=== PATIENT | female | born 1950 | race Caucasian/White ===

== ENCOUNTER 2017-01-03 12:48 | Emergency (ER) | payer MEDICAID, MEDICARE ==
[2017-01-03 13:57] LABS: #Basophils 0.1 thou/uL (0.0-0.2); #Eosinphils 0.2 thou/uL (0.0-0.7); #Lymphocytes 2.7 thou/uL (1.20-3.40); #Monocytes 0.6 thou/uL (0.11-0.59); #Neutrophils 3.2 thou/uL (1.40-6.50); %Basophils 0.9 % (0.0-1.0); %Eosinophils 2.8 % (0.0-10.0); %Lymphocytes 40.2 % (21.0-51.0); %Monocytes 8.6 % (0.0-10.0); Hematocrit 34.2 % (36.0-47.0); Mean Platelet Volume 7.3 fL (7.4-10.4); White Blood Cell (WBC) Count 6.7 thou/uL (4.8-10.8)
[2017-01-03 14:19] LABS: ALT (SGPT) 19 U/L (8-55); AST (SGOT) 18 U/L (5-34); Alkaline Phosphatase 98 U/L (40-150); Anion Gap 13 mmol/L (10-20); BUN (Urea Nitrogen) 20 mg/dL (9.8-20.1); Bilirubin, Total 0.2 mg/dL (0.2-1.2); Calc. Creatinine Clearance 0 mL/min (70-130); Calcium 8.5 mg/dL (7.8-10.44); Carbon Dioxide 26 mmol/L (23-31); Chloride 104 mmol/L (98-107); Estimated GFR-MDRD 66; Globulin 3.3 g/dL (2.4-3.5); Protein, Total 6.9 g/dL (6.0-8.3)
[2017-01-03 14:20] LABS: Acetaminophen Less than 6.0 mcg/mL (10.0-30.0); Salicylate Less than 8.0 mg/dL (15.0-30.0)
[2017-01-03 15:38] LABS: Bilirubin Negative (Negative); Blood, Urine Negative (Negative); Glucose, Urine (Dipstick) Negative (Negative); Ketone, Urine Negative (Negative); Nitrite Negative (Negative); Protein, Urine (Dipstick) Negative (Neg-Trace); Urobilinogen 0.2 mg/dL (0.2-1.0)
[2017-01-03 15:46] LABS: Amphetamine Not Detected (NotDetected); Methamphetamine Not Detected (NotDetected)
[2017-01-03 15:47] LABS: Methadone Not Detected (NotDetected)
[2017-01-03] MEDS ORDERED: Mag-Al 1200 mg/1200 mg/30 ML UDCUP ONE (23:20)
== END 2017-01-04 09:09 ==
LOC: ERS 12:48
DX: R45.851 Suicidal ideations (principal); E03.9 Hypothyroidism, unspecified; I10 Essential (primary) hypertension; F32.9 Major depressive disorder, single episode, unspecified; F41.9 Anxiety disorder, unspecified; F43.10 Post-traumatic stress disorder, unspecified; Z79.891 Long term (current) use of opiate analgesic; Z79.899 Other long term (current) drug therapy
CPT/HCPCS: 36415; 80053; 80306; 80307; 81003; 84443; 85025; 99285

== ENCOUNTER 2017-02-21 07:32 | Emergency (ER) | payer MEDICARE ==
[2017-02-21] MEDS ORDERED: Methocarbamol 500 MG TAB PO SCH (08:15)
[2017-02-21] MEDS ORDERED: Acetaminophen/Codeine 30-300mg Tablet ONE (08:33)
--- NOTE | 2017-02-21 10:25 | RAD ---
3 VIEWS LUMBAR SPINE: Date: 02/21/17 HISTORY: Low back pain after a fall. FINDINGS: There are five non-rib bearing lumbar-type vertebral bodies. Vertebral body heights are within normal limits. There is mild loss of intervertebral disc height at the L5-S1 level. Scattered osteophytes a re seen in the lumbar spine, as well as lower thoracic spine. No fracture or subluxation is identifie d. Facet degenerative changes are seen in the lower lumbar spine. Vascular calcifications seen in the abdominal aorta. Surgical clips overlie the right upper quadrant. Multiple phleboliths overlie the p kobe. IMPRESSION: 1. Degenerative changes in the lumbar spine without evidence of a fracture or subluxation. 2. Vascular calcifications in the abdominal aorta and iliac arteries. POS: [facility]
== END 2017-02-21 10:36 | disposition home or self-care (01) ==
LOC: ERS 07:32
DX: S39.012A Strain of muscle, fascia and tendon of lower back, initial encounter (principal); E03.9 Hypothyroidism, unspecified; I10 Essential (primary) hypertension; M19.90 Unspecified osteoarthritis, unspecified site; F32.9 Major depressive disorder, single episode, unspecified; F41.9 Anxiety disorder, unspecified; F43.10 Post-traumatic stress disorder, unspecified; Z79.891 Long term (current) use of opiate analgesic; Z79.899 Other long term (current) drug therapy; W01.0XXA Fall on same level from slipping, tripping and stumbling without subsequent striking against object, initial encounter
CPT/HCPCS: 72100

== ENCOUNTER 2017-09-02 15:14 | Emergency (ER) | payer MEDICARE ==
[2017-09-02] MEDS ORDERED: Lidocaine Viscous Sol 2% 15 ml UD Cup ONE (16:11)
[2017-09-02] MEDS ORDERED: Mag-Al 1200 mg/1200 mg/30 ML UDCUP ONE (16:11)
== END 2017-09-02 16:33 | disposition home or self-care (01) ==
LOC: ERS 15:14
DX: R10.13 Epigastric pain (principal); E03.9 Hypothyroidism, unspecified; F43.10 Post-traumatic stress disorder, unspecified; F41.9 Anxiety disorder, unspecified; F32.9 Major depressive disorder, single episode, unspecified; I10 Essential (primary) hypertension; M19.90 Unspecified osteoarthritis, unspecified site; Z79.899 Other long term (current) drug therapy; Z79.84 Long term (current) use of oral hypoglycemic drugs
CPT/HCPCS: 99283

== ENCOUNTER 2017-10-30 08:43 | Outpatient (CLI) | payer MEDICARE | END 2017-10-30 08:44 | disposition home or self-care (01) | LOC: BICULT 08:43 | PROVIDERS: ATTEND Nurse Practitioner Family | DX: M54.5 Low back pain (principal); R10.9 Unspecified abdominal pain; K46.9 Unspecified abdominal hernia without obstruction or gangrene; K21.9 Gastro-esophageal reflux disease without esophagitis; M47.896 Other spondylosis, lumbar region; I70.90 Unspecified atherosclerosis; K76.0 Fatty (change of) liver, not elsewhere classified; Z90.49 Acquired absence of other specified parts of digestive tract | CPT/HCPCS: 72110; 76700 ==

== ENCOUNTER 2018-06-29 23:39 | Emergency (ER) | payer MEDICARE ==
[2018-06-30 00:14] LABS: #Basophils 0.1 thou/uL (0.0-0.2); #Eosinphils 0.1 thou/uL (0.0-0.7); #Lymphocytes 3.9 thou/uL (1.20-3.40); #Monocytes 0.8 thou/uL (0.11-0.59); #Neutrophils 4.4 thou/uL (1.40-6.50); %Basophils 0.9 % (0.0-1.0); %Eosinophils 1.1 % (0.0-10.0); %Lymphocytes 42.1 % (21.0-51.0); %Monocytes 8.7 % (0.0-10.0); %Neutrophils 47.1 % (42.0-75.0); Hemoglobin 11.8 g/dL (12.0-16.0); Mean Corpuscular Hemoglobin 30.6 pg (27.0-31.0); Mean Corpuscular Volume 87.7 fL (78.0-98.0); Mean Platelet Volume 6.6 fL (7.4-10.4); Platelet Count 325 thou/uL (130-400); RBC Distribution Width 11.7 % (11.5-14.5); Red Blood Cell (RBC) Count 3.86 mill/uL (4.20-5.40); White Blood Cell (WBC) Count 9.2 thou/uL (4.8-10.8)
[2018-06-30 00:35] LABS: ALT (SGPT) 11 U/L (8-55); AST (SGOT) 11 U/L (5-34); Alkaline Phosphatase 85 U/L (40-150); Anion Gap 12 mmol/L (10-20); BUN (Urea Nitrogen) 9 mg/dL (9.8-20.1); Bilirubin, Total 0.5 mg/dL (0.2-1.2); Calc. Creatinine Clearance 0 mL/min (70-130); Calcium 9.1 mg/dL (7.8-10.44); Carbon Dioxide 27 mmol/L (23-31); Chloride 106 mmol/L (98-107); Estimated GFR-MDRD 73; Globulin 2.3 g/dL (2.4-3.5); Glucose 108 mg/dL (80-115); Potassium 3.4 mmol/L (3.5-5.1); Protein, Total 6.3 g/dL (6.0-8.3); Sodium 142 mmol/L (136-145)
[2018-06-30 00:39] LABS: Acetaminophen Less than 6.0 mcg/mL (10.0-30.0); Alcohol Less than 10 mg/dL (Less than 10); Salicylate Less than 8.0 mg/dL (15.0-30.0)
[2018-06-30 01:16] LABS: Amphetamine Not Detected (NotDetected); Cocaine Metabolite Screen Not Detected (NotDetected); Medtox Reader # READER 4; Methamphetamine Not Detected (NotDetected); Opiate Screen Not Detected (NotDetected); Phencyclidine (PCP) Not Detected (NotDetected); THC/Cannabinoid Screen Not Detected (NotDetected)
[2018-06-30 01:17] LABS: Barbiturates Screen Not Detected (NotDetected); Benzodiazepine Screen Detected (NotDetected); Medtox Control Line Valid? VALID (VALID); Methadone Not Detected (NotDetected); Oxycodone Screen Not Detected (NotDetected); Tricyclic Screen Not Detected (NotDetected)
--- NOTE | 2018-06-30 07:48 | RAD ---
FEXAM: Chest one view HISTORY: Chest pain COMPARISON: Radiograph 2017 FINDINGS: The lungs are clear. No pneumothorax or effusion. There is some scarring in the lung bases. No acute osseous abnormality. IMPRESSION: No acute intrathoracic abnormality.
== END 2018-06-30 02:26 ==
LOC: ERS 23:39
DX: R07.89 Other chest pain (principal); F41.9 Anxiety disorder, unspecified; E03.9 Hypothyroidism, unspecified; I10 Essential (primary) hypertension; F43.10 Post-traumatic stress disorder, unspecified; F32.9 Major depressive disorder, single episode, unspecified; Z79.84 Long term (current) use of oral hypoglycemic drugs; Z79.899 Other long term (current) drug therapy
CPT/HCPCS: 36415; 71045; 80053; 80306; 80307; 84443; 84484; 85025; 85379; 93005

== ENCOUNTER 2018-09-11 12:41 | Emergency (ER) | payer MEDICARE ==
[2018-09-11] MEDS ORDERED: Acetaminophen 500 MG TAB ONE (12:58)
--- NOTE | 2018-09-11 13:42 | RAD ---
XR Chest Pa Lat STANDARD History: Chest pain Comparison: Radiograph 06/30/2018 Findings: Lungs are clear. No pneumothorax or effusion. Right upper quadrant surgical clips. No acute osseous abnormality. Impression: No acute intrathoracic abnormality.
--- NOTE | 2018-09-11 13:50 | RAD ---
RIGHT KNEE 4 VIEWS: HISTORY: Trauma, right knee pain. FINDINGS/IMPRESSION: Mild degenerative changes are present. No acute fracture or dislocation is identified. There is cho ndrocalcinosis. POS: [facility]
--- NOTE | 2018-09-13 15:09 | EKG ---
Test Reason : Blood Pressure : / mmHG Vent. Rate : 068 BPM Atrial Rate : 068 BPM P-R Int : 134 ms QRS Dur : 086 ms QT Int : 430 ms P-R-T Axes : 096 027 056 degrees QTc Int : 457 ms Normal sinus rhythm Normal ECG Confirmed by MALLIKA MURRELL ([id number]), editor news VASQUEZ FRIEDMAN ([id number]) on 09/13/2018 3:08:51 PM Referred By: Confirmed By:MALLIKA MURRELL
== END 2018-09-11 13:50 | disposition home or self-care (01) ==
LOC: ERS 12:41
DX: S60.222A Contusion of left hand, initial encounter (principal); S60.221A Contusion of right hand, initial encounter; S80.211A Abrasion, right knee, initial encounter; R07.89 Other chest pain; E03.9 Hypothyroidism, unspecified; I10 Essential (primary) hypertension; M19.90 Unspecified osteoarthritis, unspecified site; F32.9 Major depressive disorder, single episode, unspecified; F41.9 Anxiety disorder, unspecified; F43.10 Post-traumatic stress disorder, unspecified; Z79.899 Other long term (current) drug therapy; Z79.84 Long term (current) use of oral hypoglycemic drugs; W19.XXXA Unspecified fall, initial encounter
CPT/HCPCS: 71046; 93005

== ENCOUNTER 2018-10-21 14:05 | Outpatient (CLI) | payer MEDICARE ==
[~2018-10-21 14:05] MED LIST: Gadobenate Dimeglumine 529 MG/1 ML (20ML VIAL) ONE
--- NOTE | 2018-10-21 16:52 | MRI ---
MRI lumbar spine with and without gadolinium contrast HISTORY: Low back pain. Bilateral hip radiculopathy. Recent fall. FINDINGS: The conus medullaris has normal appearance. Hemangiomas within the L2 vertebral body. Desic cation of the lowest 4 intervertebral discs. No bone marrow edema is apparent. Vertebral body heights are maintained. T12-L1, L1-2: Central canal and neural foramina are patent. L2-3: Mild disc bulge. Osteophytosis of the facets. Mild stenosis of the central canal and each neura l foramen. L3-4: Mild disc space narrowing. Mild bilateral posterolateral disc bulge. Circumferential degenerati ve changes. Mild stenosis of the central canal and each neural foramen. L4-5: Mild disc bulge. Prominent posterior facet hypertrophy and ligamentous thickening. Circumferent ial degenerative changes with moderate stenosis of the central canal. Moderate right and mild left foraminal stenoses. L5-S1 very mild disc bulge. Thecal sac is patent. The disc bulge and degenerative changes result in m oderate bilateral foraminal stenoses. IMPRESSION: [id number] degenerative changes lumbar spine. Stenoses most pronounced at each L5 n eural foramen and the right L4 neural foramen. Clinical correlation regarding the right L4 and each L5 dermatome is required. No evidence of compression fracture.
--- NOTE | 2018-10-21 17:48 | MRI ---
MRI CERVICAL SPINE WITH AND WITHOUT CONTRAST: 10/21/18 HISTORY: 68-year-old female with ICD-10: M54.2, cervicalgia. Neck pain and bilateral cervical radiculopathy: Pain, paresthesia, and hypesthesia of right hand. TECHNIQUE: Multisequence MRI of cervical spine obtained in sagittal and axial planes pre and post IV injection o f 15 mL of Multihance Gadolinium based contrast IV. FINDINGS: Cervical spinal cord is normal in size and signal. No syringohydromyelia. Vertebral body heights are maintained. No major bone marrow signal abnormality. Alignment is normal. No Chiari I malformation. N o high grade disc space narrowing at any level. Moderate degenerative facet hypertrophy bilaterally a t C2-3, severely on the left at C3-4, and moderately on the left at C4-5. No extrinsic cord impingeme nt. No abnormal enhancement or mass involving the intramedullary, extramedullary-intradural, extradur al, intraosseous, or perivertebral, spaces. C1-2: No central stenosis. C2-3: No central or right neural foraminal stenosis. Mild left neural foraminal stenosis. C3-4: No central stenosis. Mild right neural foraminal stenosis. Severe left neural foraminal stenosi s, mostly due to the left facet degenerative hypertrophy. C4-5: No central stenosis. No high grade bilateral neural foraminal stenosis. C5-6: Ligamentum flavum thickening encroaches upon the posterior aspect of the spinal canal, and mild disc bulge/osteophytic bar complex encroaches upon the anterior aspect of the spinal canal. Overall result is moderate central spinal canal stenosis. No high grade right neural foraminal stenosis. Mild left neural foraminal stenosis. C6-7: Normal. C7-T1: Normal. IMPRESSION: 1. Mild cervical spondylosis. 2. Severe left neural foraminal stenosis at C3-4. 3. High grade facet osteoarthrosis at a few levels, mostly on the left. POS: [facility]
== END 2018-10-21 14:06 | disposition home or self-care (01) ==
LOC: BICMRI 14:05
PROVIDERS: ATTEND Nurse Practitioner Family
DX: M54.5 Low back pain (principal); M54.2 Cervicalgia; M47.812 Spondylosis without myelopathy or radiculopathy, cervical region; M48.02 Spinal stenosis, cervical region; M47.816 Spondylosis without myelopathy or radiculopathy, lumbar region; M48.061 Spinal stenosis, lumbar region without neurogenic claudication
CPT/HCPCS: 72156; 72158; 82565; A9577

== ENCOUNTER 2020-08-10 23:43 | Emergency (ER) | payer MEDICARE ==
[2020-08-11] MEDS ORDERED: Acetaminophen 500 MG TAB ONE (00:14)
== END 2020-08-11 02:34 | disposition home or self-care (01) ==
LOC: ERS 23:43
DX: I10 Essential (primary) hypertension (principal); E03.9 Hypothyroidism, unspecified; M79.7 Fibromyalgia; M19.90 Unspecified osteoarthritis, unspecified site; E11.9 Type 2 diabetes mellitus without complications; Z79.899 Other long term (current) drug therapy; Z79.84 Long term (current) use of oral hypoglycemic drugs
CPT/HCPCS: 93005

== ENCOUNTER 2020-12-02 22:54 | Observation (INO) | payer MEDICARE, OTHER ==
[2020-12-02 23:43] LABS: #Basophils 0.1 thou/uL (0.0-0.2); #Eosinphils 0.1 thou/uL (0.0-0.7); #Lymphocytes 3.2 thou/uL (1.20-3.40); #Monocytes 0.6 thou/uL (0.11-0.59); #Neutrophils 2.8 thou/uL (1.40-6.50); %Basophils 1.2 % (0.0-1.0); %Lymphocytes 47.4 % (21.0-51.0); %Neutrophils 41.4 % (42.0-75.0); Hemoglobin 11.5 g/dL (12.0-16.0); Mean Corpuscular HGB CONC 35.1 g/dL (32.0-36.0); Mean Corpuscular Hemoglobin 31.2 pg (27.0-31.0); Mean Corpuscular Volume 88.9 fL (78.0-98.0); Mean Platelet Volume 7.4 fL (7.4-10.4); Platelet Count 280 thou/uL (130-400); RBC Distribution Width 11.5 % (11.5-14.5); Red Blood Cell (RBC) Count 3.67 mill/uL (4.20-5.40); White Blood Cell (WBC) Count 6.8 thou/uL (4.8-10.8)
[2020-12-02 23:52] LABS: Anion Gap 13 mmol/L (10-20); BUN (Urea Nitrogen) 25 mg/dL (9.8-20.1); Calc. Creatinine Clearance 0 mL/min (70-130); Carbon Dioxide 27 mmol/L (23-31); Chloride 94 mmol/L (98-107); Potassium 3.6 mmol/L (3.5-5.1); Sodium 130 mmol/L (136-145)
[2020-12-02 23:53] LABS: ALT (SGPT) 11 U/L (8-55); AST (SGOT) 18 U/L (5-34); Albumin 3.8 g/dL (3.4-4.8); Alkaline Phosphatase 71 U/L (40-110); Bilirubin, Total 0.4 mg/dL (0.2-1.2); Globulin 2.7 g/dL (2.4-3.5); Glucose 114 mg/dL (80-115); Lipase 11 U/L (8-78); Protein, Total 6.5 g/dL (5.8-8.1)
[2020-12-03] MEDS ORDERED: Acetaminophen 325 MG TAB PO PRN (02:15)
[2020-12-03] MEDS ORDERED: Senokot S 8.6-50 MG TAB PO PRN (02:15)
[2020-12-03] MEDS ORDERED: Ondansetron ODT 4 MG TAB PO PRN (02:15)
[2020-12-03] MEDS ORDERED: hydrALAZINE 20 MG/ML VIAL SLOW IVP PRN (02:47)
[2020-12-03 04:31] VITALS: BMI 24.1
[2020-12-03 05:06] LABS: Hemoglobin 11.8 g/dL (12.0-16.0); Mean Corpuscular HGB CONC 35.4 g/dL (32.0-36.0); Mean Corpuscular Hemoglobin 31.6 pg (27.0-31.0); Mean Corpuscular Volume 89.3 fL (78.0-98.0); Mean Platelet Volume 7.3 fL (7.4-10.4); Platelet Count 275 thou/uL (130-400); RBC Distribution Width 11.4 % (11.5-14.5); Red Blood Cell (RBC) Count 3.73 mill/uL (4.20-5.40); Troponin I Less than 0.010 ng/mL (< 0.028)
[2020-12-03 05:07] LABS: Eosinophils 2 % (0-10); Lymphocytes 59 % (21-51); MDiff Complete? YES; Monocytes 10 % (0-10); Neutrophil 29 % (42-75); Platelet Morphology Comment Appears Adequate
[2020-12-03 05:29] LABS: Anion Gap 14 mmol/L (10-20); BUN (Urea Nitrogen) 22 mg/dL (9.8-20.1); Calc. Creatinine Clearance 54 mL/min (70-130); Calcium 9.2 mg/dL (7.8-10.44); Carbon Dioxide 28 mmol/L (23-31); Chloride 95 mmol/L (98-107); Glucose 101 mg/dL (80-115); Potassium 3.5 mmol/L (3.5-5.1); Sodium 133 mmol/L (136-145)
[2020-12-03 05:51] LABS: Hemoglobin A1c 5.8 % (4.0-6.0)
[2020-12-03] MEDS ORDERED: Loratadine 10 MG TAB PO PRN (07:47)
[2020-12-03] MEDS ORDERED: Nitroglycerin 0.4 MG TAB (25 Tab Bottle) SL PRN (09:42)
[2020-12-03] MEDS: cloNIDine 0.1 MG TAB PO SCH (10:02)
[2020-12-03] MEDS: Hydrochlorothiazide 25 MG TAB PO SCH (10:02)
[2020-12-03] MEDS: Propranolol HCl LA 60 MG CAP PO SCH ×2 (10:03→21:30)
[2020-12-03] MEDS: Enoxaparin Sodium 40 MG/0.4 ML SYRINGE SC SCH (10:03)
[2020-12-03] MEDS: ALPRAZolam 1 MG TAB PO SCH ×3 (10:04→21:30)
[2020-12-03 10:40] LABS: Troponin I Less than 0.010 ng/mL (< 0.028)
[2020-12-03] MEDS ORDERED: Potassium Chloride 20 MEQ TAB PO SCH (15:30)
[2020-12-03 15:40] LABS: Magnesium 1.8 mg/dL (1.6-2.6)
[2020-12-03] MEDS ORDERED: Temazepam 15 MG CAP PO SCH (21:00)
[2020-12-04 04:39] LABS: #Eosinphils 0.1 thou/uL (0.0-0.7); #Lymphocytes 2.8 thou/uL (1.20-3.40); #Monocytes 0.5 thou/uL (0.11-0.59); #Neutrophils 2.5 thou/uL (1.40-6.50); %Basophils 0.6 % (0.0-1.0); %Eosinophils 1.6 % (0.0-10.0); %Lymphocytes 46.9 % (21.0-51.0); %Monocytes 8.3 % (0.0-10.0); %Neutrophils 42.6 % (42.0-75.0); Hemoglobin 11.2 g/dL (12.0-16.0); Mean Corpuscular HGB CONC 35.1 g/dL (32.0-36.0); Mean Corpuscular Hemoglobin 31.2 pg (27.0-31.0); Mean Corpuscular Volume 88.9 fL (78.0-98.0); Mean Platelet Volume 7.2 fL (7.4-10.4); Platelet Count 257 thou/uL (130-400); RBC Distribution Width 11.3 % (11.5-14.5)
[2020-12-04 04:58] LABS: Anion Gap 12 mmol/L (10-20); BUN (Urea Nitrogen) 15 mg/dL (9.8-20.1); Calc. Creatinine Clearance 69 mL/min (70-130); Carbon Dioxide 26 mmol/L (23-31); Chloride 98 mmol/L (98-107); Glucose 96 mg/dL (80-115); Potassium 3.9 mmol/L (3.5-5.1); Sodium 132 mmol/L (136-145)
[2020-12-04] MEDS ORDERED: Thyroid 60 MG TAB PO SCH (06:00)
[2020-12-04] MEDS: ALPRAZolam 1 MG TAB PO SCH ×2 (08:32→14:50)
[2020-12-04] MEDS: Enoxaparin Sodium 40 MG/0.4 ML SYRINGE SC SCH (08:33)
[2020-12-04] MEDS ORDERED: ADENOSINE 60 MG/20 ML VIAL ONE (08:53)
[2020-12-04] MEDS: Propranolol HCl LA 60 MG CAP PO SCH (11:20)
[2020-12-04] MEDS: cloNIDine 0.1 MG TAB PO SCH (13:16)
[2020-12-04] MEDS: Hydrochlorothiazide 25 MG TAB PO SCH (13:17)
[2020-12-04] MEDS ORDERED: Amlodipine 10 MG TAB PO SCH (13:45)
[2020-12-04 15:20] VITALS: TEMP 97.8
[2020-12-04 16:40] VITALS: BP 165/79
[2020-12-05] MEDS ORDERED: Amlodipine 5 MG TAB PO SCH (09:00)
== END 2020-12-04 17:58 | disposition home or self-care (01) ==
LOC: ERS 22:54 → 2NO 12-03 01:56
PROVIDERS: ADMIT Student in an Organized Health Care Education/Training Program; ATTEND Internal Medicine
DX: R07.89 Other chest pain (principal); R00.1 Bradycardia, unspecified; E87.1 Hypo-osmolality and hyponatremia; M19.012 Primary osteoarthritis, left shoulder; I10 Essential (primary) hypertension; E11.9 Type 2 diabetes mellitus without complications; E03.9 Hypothyroidism, unspecified; I25.10 Atherosclerotic heart disease of native coronary artery without angina pectoris; I25.2 Old myocardial infarction; I31.3 Pericardial effusion (noninflammatory); I08.1 Rheumatic disorders of both mitral and tricuspid valves; F41.9 Anxiety disorder, unspecified; G25.0 Essential tremor; M79.7 Fibromyalgia; K58.9 Irritable bowel syndrome, unspecified; A69.23 Arthritis due to Lyme disease; Z66 Do not resuscitate; Z88.2 Allergy status to sulfonamides; Z88.5 Allergy status to narcotic agent; Z88.6 Allergy status to analgesic agent; Z88.8 Allergy status to other drugs, medicaments and biological substances; Z79.84 Long term (current) use of oral hypoglycemic drugs; Z79.899 Other long term (current) drug therapy; Z95.5 Presence of coronary angioplasty implant and graft
CPT/HCPCS: 71045; 73030; 78452; 80048 ×2; 80053; 82962 ×2; 83036; 83690; 83735; 83930; 83935; 84443; 84484 ×3; 85007; 85025 ×2; 85027; 93005 ×2; 93017; 93306; 99285; A9500; 36415; 36416; 93010; J0153; J1650